=== PATIENT | female | born 1985 | race Caucasian/White ===

== ENCOUNTER 2016-08-14 19:36 | Emergency (ER) | payer OTHER ==
[2016-08-14] MEDS ORDERED: MEPERIDINE HCL/PF 100 MG/1 ML INJECTION IM ONE (20:02)
[2016-08-14] MEDS ORDERED: Ondansetron ODT Tab 8 MG TAB PO ONE (20:02)
[2016-08-14 20:28] VITALS: RESP 22; TEMP 98.2
[2016-08-14] MEDS ORDERED: HYDROcodone-APAP 10 MG-325 MG TABLET PO PRN (20:54)
--- NOTE | 2016-08-15 00:28 | PDOC ---
Back Pain / Injury HPI - General Chief Complaint: Neck / Back Complaint Stated Complaint: FALL WITH BACK PAIN Date Seen by Provider: 08/14/16 Time Seen by Provider: 19:50 Source: Patient Exam Limitations: POSITIVE: No limitations Nurse's Notes Reviewed & Considered: Yes - History of Present Illness Initial Comments: The patient is a 31-year-old female. 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 She states she fell directly onto her butt oxygen and then fell backward onto her lower back. Patient has a long-standing history of chronic back pain. She states she had an L4-L5 fusion 3 months ago. Patient denies any radiation of pain or radicular symptoms. No sensory or motor symptoms. She denies any associated head neck chest abdomen or extremity trauma or discomfort. She complains of pain over the lumbar area. Body Location Affected: REPORTS: Back Timing: REPORTS: Abrupt Duration: 1 hour Severity: Moderate Quality: REPORTS: "Pain" Context: REPORTS: Fall (Slipped on ice) Modifying Factors: improves with: Palpation, Movement Associated Symptoms: REPORTS: Back pain Similar Symptoms Previously: Yes (as above) Recent Care Received: REPORTS: Recently Seen, Treated by , Hospitalized, Surgery (L4-L5 fusion 3 months ago) Any Prior Injuries Related to Current Complaint?: Yes (as above) - Patient Home Medications Home Medications: Home Medications Venlafaxine HCl [Effexor] 04/02/12 HYDROcodone/APAP 10/325 Tab [[place] 10/325 Tab] 1 tab PO Q6H PRN #20 tab - Patient Allergies Allergies/Adverse Reactions: Allergies Allergy/AdvReac Type Severity Reaction Status Date / Time ketorolac tromethamine Allergy Severe HIVES Verified 08/14/16 20:18 [From Toradol] prochlorperazine Allergy NOT Verified 08/14/16 20:18 [From Compazine] APPLICABLE prochlorperazine edisylate Allergy NOT Verified 08/14/16 20:18 [From Compazine] APPLICABLE prochlorperazine maleate Allergy NOT Verified 08/14/16 20:18 [From Compazine] APPLICABLE Past Medical History - heen HEENT History: Other (please comment) Additional HEENT History: Hx of a Tonsillectomy and Adnoidectomy Cardiovascular History: Denies History Respiratory History: Denies History Gastrointestinal History: Crohn's, Other (please comment) Additional Gastrointestinal History: Hx of Appendectomy and Cholecystectomy Genitourinary History: Recurrent UTI, Kidney Stones Additional Genitourinary History: Hx of Lythotrypsy in the past for renal calculi Endocrine History: Denies History Musculoskeletal History: Denies History Prosthesis or Implant: No Neurological History: Migraines Blood Disorders: Denies History Psychiatric History: Anxiety Disorders History of Sexually Transmitted Diseases: No Female Reproductive History: Denies History Obstetrical History: Denies History Cancer History: Denies History In Past Year Been Physically Harmed or Verbally Threatened: No History of MDRO: No History of Other Communicable Diseases: No Tobacco Use: Never Smoker Alcohol Use: None Substance Use Type: None Previous Surgical History: Yes Type / Date of Surgery: L4-5 FUSION. APPY. ROSITA. TUBAL. CSECTION X 3 Anesthesia Reactions: No Significant Family History: No pertinent family hx Past Medical History Reviewed: Reviewed - No Changes ROS - Limitations ROS Limitations: No Limitations Constitution: REPORTS: Denies Symptoms Cardiovascular: REPORTS: Denies Cardiac Symptoms Respiratory: REPORTS: Denies Resp Symptoms Neurological: REPORTS: Denies Neuro Symptoms Gastrointestinal: REPORTS: Denies GI Symptoms Endocrine: REPORTS: Denies Symptoms Musculoskeletal: REPORTS: Back Pain, Recent Injury (As above) Genitourinary: REPORTS: Denies Symptoms Eyes: REPORTS: Denies Symptoms ENT: REPORTS: Denies Symptoms Skin: REPORTS: Denies Skin Symptoms Lympathic: REPORTS: Denies Lympathic Symptoms Immunologic: POSITIVE: Denies Symptoms Psychiatric: POSITIVE: Denies Psych Symptoms Back Physical Assessment - General Appearance General Appearance: REPORTS: Alert, Cooperative, No Acute Distress - HEENT HEENT: POSITIVE: Head Inspection Nml, Eyes Inspection Nml, Ears Inspection Nml, Nose Inspection Nml, Oral/Dental Inspect. Nml, Pharynx Inspect. Nml, PERRL, EOMI - Pupil Size Pupil Size: 4 mm: Bilateral (PERRLA) - Neck Neck: POSITIVE: Non Tender, Painless ROM, Trachea Midline, Nexus Criteria Negative - Respiratory / CVS Respiratory / CVS: POSITIVE: Chest Non Tender, No Ecchymosis, Breath Sounds Normal, No Respiratory Distress, Heart Sounds Normal, Regular Rate/Rhythm - Abdomen Abdomen: Soft: (All Quadrants), Normal Bowel Sounds: (All Quadrants), Denies Tenderness: (All Quadrants), No Splenomegaly: (All Quadrants), No Hepatomegaly: (All Quadrants), No Guarding: (All Quadrants), No Rebound: (All Quadrants), No Palpable Pulse: (All Quadrants), No Palpabale Mass: (All Quadrants), No Distention: (All Quadrants), No Rigidity: (All Quadrants) - Back Back: REPORTS: No CVA Tenderness, Limited ROM, See Diagram (See diagram). 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 - Patient's Progress Pain Medication Addressed: POSITIVE: Yes (Patient given Demerol 100 mg IM in ER , along with 4 mg of Zofran sublingually) School/Work Release Addressed: POSITIVE: Yes (Rest for 1-2 days) Re-Examine Time: 20:45 Re-Examine Comment: Pain lasts after Demerol IM Status: POSITIVE: Improved, Re-Examined - Consult Counseled: POSITIVE: Patient, RE: Radiology Results, RE: DX, RE: Need for F/U Patient Care Time - Estimated PCT Patient Care Time (In Minutes): 30 Vital Signs - Recent Vital Signs Vital Signs: Vital Signs (Last 8 hours) Temp Pulse Resp BP Pulse Ox 08/14/16 19:42 98.2 F 82 22 128/96 100 - VS Reviewed Vital Signs Reviewed: Yes Discharge Clinical Impression: Lumbar strain Discharge Disposition: Discharged to Home Condition: Stable Prescriptions / Orders: HYDROcodone/APAP 10/325 Tab [[place] 10/325 Tab] 1 tab PO Q6H PRN #20 tab PRN Reason: Pain Patient Instructions Given at Discharge: Low Back Strain (ED) Additional Instructions: X-ray of your lumbar spine shows no fractures or other acute abnormalities. The hardware in your L4-L5 fusion appears normal. Rest for one to 2 days. Hydrocodone/APAP, one every 6 hours as necessary for pain. Follow-up with your primary care provider in 3 or 4 days if not improving. Warm moist compresses to your back. Advil or Tylenol for mild pain. Return here as necessary. Follow Up With: NONE,NONE [Primary Care Provider] - (Instructions as above. Follow-up with your primary care provider. Return here anytime if condition worsens in any way.)
--- NOTE | 2016-08-16 14:07 | DI ---
LUMBAR SPINE SERIES, 08/14/2016 8:01 PM: Clinical History: The patient had recent back surgery 3 months ago. The patient fell on the ice and i njured her lower back. The patient has low back pain. This information was provided by the attending ER physician. Previous Exam: None at this facility. Upright AP and lateral views are submitted. The vertebral bodies are of normal height and size. No fr actures are identified. The patient is status post anterior and posterior fusions at L4-5. Posterior fusions are accomplished with metallic struts transfixed with pedicle screws between L4 and L5. Anter ior bony graft cage lies to the right of midline but as the appropriate position on the lateral view. On the lateral projection, there is a lucency in the region of the L4 pars interarticularis and this can either be an artifact from overlying bowel gas, or it may represent bilateral pars interarticula ris defects. No prior films are available for comparison. Both SI joints are normal. The remaining di sc spaces are of normal height. Readin. No acute fractures are identified. 2. Status post anterior and posterior fusions. There is no displacement of the bone graft cage with respect to the appearance on lateral view. 3. There is either an artifact or a true lucency corresponding to the region of the L4 pars interart icularis.
== END 2016-08-14 21:12 | disposition home or self-care (01) ==
LOC: ER 19:36
DX: S39.012A Strain of muscle, fascia and tendon of lower back, initial encounter (principal); W00.0XXA Fall on same level due to ice and snow, initial encounter
CPT/HCPCS: 72100; 96372; 99283 ×2; Q0162; J2175